=== PATIENT | male | born 1985 | race Caucasian/White ===

== ENCOUNTER 2020-07-13 23:03 | Emergency (ER) | payer MEDICAID, SELFPAY ==
[2020-07-13 23:03] VITALS: BP 130/85; PULSE 101; RESP 27; TEMP 37.2; O2SAT 98
[2020-07-13 23:15] VITALS: RESP 18
--- NOTE | 2020-07-13 23:19 | ED.OVERDOSE ---
HPI - Overdose General Chief Complaint: Overdose Stated Complaint: od Time Seen by Provider: 07/13/20 23:12 History of Present Illness HPI Narrative: Brought in from [facility] [place] [facility] for opioid overdose. Found unresponsive and not breathng. Given 4 mg narcan by EMS. He admits to taking 3 vicodin. He was not trying to harm himself. He did hit his head when he fell. He has no other complaints at this time. Related Data Allergies Allergy/AdvReac Type Severity Reaction Status Date / Time No Known Allergies Allergy Unverified 10/05/19 11:50 Review of Systems Review of Systems: All systems reviewed & are unremarkable except as noted in HPI and below Constitutional: Constitutional: Denies fever(s) Eyes: Eyes: Denies change in vision Cardiovascular: Cardiovascular: Denies chest pain Respiratory: Respiratory: Denies dyspnea Gastrointestinal: Gastrointestinal: Denies abdominal pain, Denies nausea and Denies vomiting Musculoskeletal: Musculoskeletal: Reports arthralgias Neurologic: Denies confusion, Denies dizziness and Denies weakness Psychiatric: Psychiatric: Denies anxiety, Denies depression and Denies suicidal ideation [facility] Past Medical History Medical History Dental abscess Right wrist fracture Toe fracture Lt 1st toe Surgical History Surgical History History of intestinal surgery Family History Family History Mother Patient's mother is in good health Grandparent Diabetes mellitus Social History Social History Smoking status: Never smoker Alcohol intake: current Gender identity (if verbalized by the patient): Male Exam Const: General: healthy appearing, no acute distress and alert Orientation/consciousness: patient oriented x3 HENMT: Other: minor abrasion to right forehead Eyes: Pupils: Equal, round and reactive pupils present EOM: EOMs intact bilaterally Resp: Effort & Inspection: normal respiratory effort Auscultation: clear to auscultation bilaterally Cardio: Rate: regular rate Rhythm: regular rhythm GI: GI Palp: Yes Soft to palpation and No Tenderness to palpation present (GI) Skin: General skin exam: normal color Neuro: General: patient oriented x3, moves all extremities, no focal motor deficits and CN's II-XI intact bilaterally Speech: normal speech Extrem: General: normal to inspection Course Vital Signs Vital signs: Vital Signs Temperature 37.2 C 07/13/20 23:03 Pulse Rate 101 H 07/13/20 23:03 Respiratory Rate 27 H 07/13/20 23:03 Blood Pressure 130/85 07/13/20 23:03 Pulse Oximetry 98 07/13/20 23:03 Temperature 36.7 C 07/14/20 00:51 Pulse Rate 101 H 07/14/20 00:51 Respiratory Rate 17 07/14/20 00:51 Blood Pressure 129/88 07/14/20 00:51 Pulse Oximetry 100 07/14/20 00:51 MDM - Overdose MDM Narrative Medical decision making narrative: Observed for 90 minutes. Fully alert and oriented. Safe for discharge at this time Discharge Plan Discharge Clinical Impression: Opioid overdose Qualifiers: Encounter type: initial encounter Injury intent: accidental or unintentional Qualified Code(s): T40.2X1A - Poisoning by other opioids, accidental (unintentional), initial encounter Patient Disposition: Home, Self-Care Condition: Stable Instructions: Prescription Opioid Overdose (ED) Prescriptions: No Action penicillin V potassium 500 mg tablet 500 mg PO Q12H Qty: 20 RF: 0 ibuprofen [Motrin IB] 200 mg capsule 800 mg PO Q8H PRN (Reason: pain) Qty: 20 RF: 0 sertraline 50 mg tablet 50 mg PO DAILY Qty: 30 RF: 2 Follow-up/Referrals: Juan Jose Coleman DO [Primary Care Provider] - Discharge Date/Time: 07/14/20 00:55
[2020-07-13 23:50] VITALS: BP 120/79; PULSE 108; RESP 18; O2SAT 100
--- NOTE | 2020-07-14 00:02 | ECG_ITS ---
Measurements Intervals [place] Rate: 99 P: 58 WI: 143 QRS: 87 QRSD: 126 T: 16 QT: 328 QTc: 421 Interpretive Statements SINUS RHYTHM INTRAVENTRICULAR CONDUCTION DELAY BASELINE ARTIFACT- I, II, AVR, AVL, AVF, V1-V2 BORDERLINE ECG Electronically Signed On 07-14-2020 7:23:08 CDT by Contreras oDwd D.O.
[2020-07-14 00:51] VITALS: BP 129/88; PULSE 101; RESP 17; TEMP 36.7; O2SAT 100
== END 2020-07-14 00:55 | disposition home or self-care (01) ==
PROVIDERS: Emergency Provider Emergency Medicine; PCP Internal Medicine
DX: T40.2X1A Poisoning by other opioids, accidental (unintentional), initial encounter (principal); I45.9 Conduction disorder, unspecified
CPT/HCPCS: 93005; 99283

== ENCOUNTER 2021-04-21 09:33 | Emergency (ER) | payer BC, SELFPAY ==
--- NOTE | ~2021-04-21 | XR_ITS ---
XR lumbar spine min 4V 04/21/2021 10:22 Indication: Low back pain Procedure: 5 views lumbar spine Comparison: 03/01/2018 Findings: There is disc narrowing at L3-4, L4-5 and L5-S1. No fracture, subluxation or dislocation. N o evidence for spondylolysis or spondylolisthesis. Sacral foramen are symmetric. There is mild lower lumbar facet hypertrophy. Mild wedge-shaped appearance to T11 which appears chronic. Impression: 1: Moderate lumbar spondylosis. Reviewed, dictated and finalized at location A. Impression: 1: Moderate lumbar spondylosis.
[2021-04-21 09:42] VITALS: PULSE 99; RESP 15; TEMP 36.7; O2SAT 98
--- NOTE | 2021-04-21 10:13 | PC.NURSE ---
Pt to XRAY via stretcher.
[2021-04-21] MEDS: KETOROLAC (*BKC) 60 MG/2 ML VIAL IM (10:21)
--- NOTE | 2021-04-21 10:45 | ED.GENADULT ---
HPI - General Adult General Chief complaint: Back Pain/Injury Stated complaint: back pain Time Seen by Provider: 04/21/21 09:41 Source: patient and RN notes reviewed Mode of arrival: ambulatory Limitations: no limitations History of Present Illness HPI narrative: Patient is a 35-year-old male who presents to emergency department for evaluation of low back pain over the last 5 days began after doing some work in his basement and then persisted is localized to the mid lumbar region that does not radiate made worse with activity and movement presents in no distress has not been seen for this complaint did take one of his 's tramadol with minimal improvement patient on arrival to emergency department appears uncomfortable but not distressed denies any radicular symptoms or paresthesias has not taken anything for his symptoms today Related Data Allergies Allergy/AdvReac Type Severity Reaction Status Date / Time No Known Allergies Allergy Verified 04/21/21 09:47 Review of Systems Review of Systems: All systems reviewed & are unremarkable except as noted in HPI and below PMFSH Past Medical History Medical History (Updated 04/21/21 @ 10:55 by Rashad Toledo PA-C) Dental abscess Right wrist fracture Toe fracture Lt 1st toe Surgical History Surgical History History of intestinal surgery Family History Family History Mother Patient's mother is in good health Grandparent Diabetes mellitus Social History Social History Smoking status: Never smoker Alcohol intake: current Gender identity (if verbalized by the patient): Male Exam Narrative: Exam Narrative: GENERAL: Well-appearing, obese, and in no acute distress. HEAD: Normocephalic, atraumatic. EYES: PERRLA and EOMI. ENT: Nares clear, no rhinorrhea or epistaxis. Mucous membranes moist. CHEST: Clear to auscultation. No respiratory distress. No wheezes rales or rhonchi HEART: Regular rate and rhythm. No murmur heard. Normal peripheral pulses. EXTREMITIES: Normal range of motion. No edema. Midline lumbar tenderness no deformities no rashes no swelling SKIN: Warm, dry, no rash. NEURO: No focal deficits. Alert and oriented x3. Normal speech and gait. Motor and sensory intact and symmetrical in the extremities PSYCH: Normal mood and affect. Course Course Emergency Course: Patient in the room in no distress aware of case findings treatment plan and diagnosis agreeing to follow-up as instructed or to return if symptoms worsen or concerns. Given Toradol in the emergency department Vital Signs Vital signs: Vital Signs Temperature 98.1 F 04/21/21 09:42 Pulse Rate 99 04/21/21 09:42 Respiratory Rate 15 04/21/21 09:42 Pulse Oximetry 98 04/21/21 09:42 Temperature 98.1 F 04/21/21 09:42 Pulse Rate 99 04/21/21 09:42 Respiratory Rate 15 04/21/21 09:42 Pulse Oximetry 98 04/21/21 09:42 Medical Decision Making MDM Narrative Medical decision making narrative: Patients pain is positional in nature and localized to back without signs of cord compression or cauda equina based on neurological exam, skeletal exam and history. No fever or other significant factors to suggest osteomyelitis or spinal epidural abscess. No symptoms or signs to suggest pain is referred from abdominal or / cardiopulmonary sources. No pulsatile masses noted on exam. Patient ambulates with steady gait and is stable for outpatient management given case findings. Vital Signs Vital Signs: Vital Signs Temperature 98.1 F 04/21/21 09:42 Pulse Rate 99 04/21/21 09:42 Respiratory Rate 15 04/21/21 09:42 Pulse Oximetry 98 04/21/21 09:42 Temperature 98.1 F 04/21/21 09:42 Pulse Rate 99 04/21/21 09:42 Respiratory Rate 15 04/21/21 09:42 Pulse Oximetry 98 04/21/21 09:42
[2021-04-21 11:07] VITALS: BP 116/63; PULSE 66; RESP 15; O2SAT 98
== END 2021-04-21 11:09 | disposition home or self-care (01) ==
PROVIDERS: Emergency Provider Emergency Medicine; PCP Internal Medicine
DX: M54.5 Low back pain (principal); M47.816 Spondylosis without myelopathy or radiculopathy, lumbar region
CPT/HCPCS: 72110; 96372; 99283; J1885

== ENCOUNTER 2021-09-06 18:36 | Emergency (ER) | payer BC, SELFPAY ==
[2021-09-06 19:03] VITALS: BP 138/71; PULSE 82; RESP 16; TEMP 36.4; O2SAT 100
--- NOTE | 2021-09-06 19:34 | ED.BACK ---
HPI - Back Pain/Injury General Chief Complaint: Back Pain/Injury Stated Complaint: Back pain, L flank Time Seen by Provider: 09/06/21 19:27 Source: patient and RN notes reviewed Mode of arrival: ambulatory Limitations: no limitations History of Present Illness HPI Narrative: This is a 36 year old male who presents for evaluation of bilateral lower back pain. He developed pain 2 days ago when he was bending over and tried to stand up. His pain has been constant, and it is worse with movement. He denies any heavy lifting. He initially reported that his pain does not radiate. He now states pain radiated down his legs when it became severe. HE denies abdominal pain, nausea, vomiting, leg weakness, numbness or tingling. He also denies urinary retention or incontinence. He took ibuprofen for his pain this morning and he has a lidocaine patch in pace on his lower back. He rates his pain 7/10. HE states had similar occurrence 3 years ago. At that time his pain was more severe so he has come early to prevent that from happening. Related Data Allergies Allergy/AdvReac Type Severity Reaction Status Date / Time No Known Allergies Allergy Verified 04/21/21 09:47 Review of Systems Review of Systems: All systems reviewed & are unremarkable except as noted in HPI and below PMFSH Past Medical History Medical History (Updated 09/06/21 @ 19:43 by Ivana Solsi MD) Dental abscess Right wrist fracture Toe fracture Lt 1st toe Surgical History Surgical History History of intestinal surgery Family History Family History Mother Patient's mother is in good health Grandparent Diabetes mellitus Social History Social History (Updated 09/06/21 @ 19:39 by Ivana Solis MD) Smoking status: Never smoker Alcohol intake: current Substance use type: marijuana Other substance usage details: denies IV drug use Gender identity (if verbalized by the patient): Male Exam Const: General: no acute distress and alert Orientation/consciousness: patient oriented x3 Eyes: EOM: EOMs intact bilaterally Resp: Effort & Inspection: normal respiratory effort and no retractions Auscultation: clear to auscultation bilaterally Cardio: Rate: regular rate Rhythm: regular rhythm Heart sounds: no murmurs GI: GI Palp: Yes Soft to palpation, No Tenderness to palpation present (GI) and No Guarding due to palpation present (GI) Auscultation: normal bowel sounds Back/Spine/Pelvis: Thoracic/Lumbar Spine: No thoracic spinal tenderness and No lumbar spinal tenderness Skin: General skin exam: normal color Rashes: no rashes Neuro: General: patient oriented x3, moves all extremities and CN's II-XI intact bilaterally Extrem: General: normal to inspection Psych: Mental Status: mental status grossly normal Affect: normal affect Course Reevaluation(s) Reevaluation #1: PAtient appears to have come with lumbar strain. no deficits. No fever. He will be treated with muscle relaxer and NSAIDs. He declines pain medication in ER. Date: 09/06/21 Time: 19:41 Vital Signs Vital signs: Vital Signs Temperature 97.5 F L 09/06/21 19:03 Pulse Rate 82 09/06/21 19:03 Respiratory Rate 16 09/06/21 19:03 Blood Pressure 138/71 09/06/21 19:03 Pulse Oximetry 100 09/06/21 19:03 Temperature 97.5 F L 09/06/21 19:03 Pulse Rate 88 09/06/21 20:04 Respiratory Rate 18 09/06/21 20:04 Blood Pressure 133/66 09/06/21 20:04 Pulse Oximetry 99 09/06/21 20:04 MDM - Back Pain/Injury Lab Data Labs: Lab Results 09/06/21 Range/Units 19:27 Urine Color Yellow (Yellow) Urine Appearance Clear (Clear) Urine pH 6.0 (5.0-9.0) Ur Specific [place] 1.017 (1.001-1.035) Urine Protein Negative (Negative) mg/dL Urine Glucose (UA) Negative (Negative) mg/dL Urine Ketones Negative (Negative) mg/d
[2021-09-06 19:37] LABS: Add Urine Microscopic? NO; Appearance Urine Clear (Clear); Bilirubin Urine Negative (Negative); Blood Urine Negative (Negative); Color Urine Yellow (Yellow); Glucose Urine UA Negative (Negative); Ketones Urine Negative (Negative); Leukocyte Esterase Ur Negative LEU/UL (Negative); Nitrate Urine Negative (Negative); Protein Urine Negative (Negative); Specific Grav Ur 1.017 (1.001-1.035); Urobilinogen Urine Negative mg/dL (<2.0)
[2021-09-06 20:04] VITALS: BP 133/66; PULSE 88; RESP 18; O2SAT 99
== END 2021-09-06 20:06 | disposition home or self-care (01) ==
LOC: ANHED 19:46
PROVIDERS: Emergency Medicine; Emergency Provider General Practice; PCP Internal Medicine
DX: S39.012A Strain of muscle, fascia and tendon of lower back, initial encounter (principal); X50.0XXA Overexertion from strenuous movement or load, initial encounter
CPT/HCPCS: 81003; 99283